=== PATIENT | male | born 1950 | race Caucasian/White ===

== ENCOUNTER 2022-03-27 18:00 | Emergency (ER) | payer MEDICARE ==
[~2022-03-27] VITALS: Ht 177.8 cm; Wt 105.2 kg
[~2022-03-27 18:00] MED LIST: ASPIR LOW81 MG PO; FLOMAX0.4 MG PO; MULTI VITAMINS1 TAB PO
[2022-03-27 19:26] LABS: BILIRUBIN Negative (Negative); BLOOD 3+ (Negative); CLARITY Clear (Clear); COLOR Yellow (Yellow); GLUCOSE Negative (Negative); KETONE Negative (Negative); LEUKO ESTERASE 3+ (Negative); NITRITE Negative (Negative); SPECIFIC GRAVITY <= 1.005 (1.001-1.030); UROBILINOGEN 0.2 E.U./dl (0.0-1.0)
[2022-03-27 19:50] LABS: BACTERIA TRACE; EPITHELIAL CELLS 0-2; RBC TNTC rbc/hpf (0-2); WBC 21-30 wbc/hpf (0-5)
[2022-03-27] MEDS ORDERED: SEPTDS PO (20:29)
== END 2022-03-27 20:27 | disposition home or self-care (01) ==
LOC: ED 18:00
PROVIDERS: Physician Assistant
DX: N39.0 Urinary tract infection, site not specified (principal); R33.9 Retention of urine, unspecified; Z79.899 Other long term (current) drug therapy; Z79.82 Long term (current) use of aspirin; Z98.890 Other specified postprocedural states

== ENCOUNTER 2023-07-17 13:56 | Inpatient (IN) | payer MEDICARE ==
[~2023-07-17] VITALS: Ht 177.8 cm; Wt 103.6 kg
[~2023-07-17 13:56] MED LIST changes: +SEPTDS PO
[2023-07-17 14:14] VITALS: BP 116/75
[2023-07-17] MEDS ORDERED: SODIUM CHLORIDE 0.9% 1,000 ML IV SCH ×3 (14:35→21:00)
[2023-07-17 15:20] LABS: BASO % 0.2 % (0.0-1.0); EOS % 0.1 % (1.0-4.0); LYMPH # 0.9 10*3/uL (1.3-4.4); LYMPH % 5.5 % (27.0-41.0); MEAN CELL VOLUME 89.3 fl (80.0-94.0); MEAN CORPUSCULAR HGB CONC 32.4 g/dl (33.0-37.0); MEAN PLATELET VOLUME 9.2 fl (9.6-12.3); MONO # 1.1 10*3/uL (0.1-1.0); MONO % 6.6 % (3.0-9.0); NEUT # 14.3 10*3/uL (2.3-7.9); NEUT % 87.2 % (47.0-73.0); PLATELET COUNT AUTOMATED 202 10*3/uL (130-400); RED BLOOD COUNT 5.49 10*6/uL (4.50-5.90); RED CELL DISTRI WIDTH 13.4 % (0-14.5); WHITE BLOOD COUNT 16.3 10*3/uL (4.8-10.8)
[2023-07-17 15:36] LABS: ALKALINE PHOSPHATASE 110 U/L (46-116); BUN 12 mg/dl (9-23); CHLORIDE 104 mmol/L (98-107); POTASSIUM 3.5 mmol/L (3.4-5.1); SGPT/ALT 13 U/L (5-49); TOTAL PROTEIN 6.8 gm/dL (6.0-8.0)
[2023-07-17 15:59] LABS: BILIRUBIN Negative (Negative); BLOOD 3+ (Negative); CLARITY Turbid (Clear); COLOR Dark Yellow (Yellow); GLUCOSE Negative (Negative); KETONE Trace (Negative); LEUKO ESTERASE 3+ (Negative); NITRITE Positive (Negative); PH 6.5 (4.5-8.0); SPECIFIC GRAVITY 1.025 (1.001-1.030)
[2023-07-17 16:12] LABS: BACTERIA 2+; RBC 41-50 rbc/hpf (0-2); WBC 31-40 wbc/hpf (0-5)
[2023-07-17] MEDS ORDERED: Ceftriaxone Sodium 1 GM/10 ML SYR IV ONE (16:15)
[2023-07-17 17:44] VITALS: BP 136/80
[2023-07-17] MEDS ORDERED: FINASTERIDE5 M1 PO (17:57)
[2023-07-17] MEDS ORDERED: OXYBUTYNIN10 MG PO (17:58)
[2023-07-17 19:12] VITALS: BP 125/72
[2023-07-17] MEDS ORDERED: Magnesium Hydroxide 30 ML UDC PO PRN (19:50)
[2023-07-17] MEDS ORDERED: BISACODYL 5 MG TAB PO PRN (19:50)
[2023-07-17] MEDS ORDERED: ACETAMINOPHEN 650 MG SUPP R PRN (19:50)
[2023-07-17] MEDS ORDERED: Ondansetron Hydrochloride 4 MG/2 ML VIAL IV PRN (19:50)
[2023-07-17] MEDS ORDERED: ACETAMINOPHEN 325 MG TAB PO PRN (19:50)
[2023-07-17] MEDS ORDERED: TEMAZEPAM 15 MG CAP PO PRN (19:50)
[2023-07-17] MEDS ORDERED: Acetaminophen/Hydrocodone 5 MG/325 MG TABLET PO PRN (19:50)
[2023-07-17] MEDS ORDERED: MORPHINE Sulfate 2 MG/ML SYR IV PRN (19:50)
[2023-07-17] MEDS ORDERED: BISACODYL 10 MG SUPP R PRN (19:50)
[2023-07-17 21:14] VITALS: BP 137/74
[2023-07-18] VITALS: BP 120/57
[2023-07-18 06:23] LABS: BASO % 0.3 % (0.0-1.0); EOS % 0.2 % (1.0-4.0); HEMATOCRIT 43.8 % (42.0-52.0); LYMPH # 1.3 10*3/uL (1.3-4.4); LYMPH % 8.2 % (27.0-41.0); MEAN CELL VOLUME 89.2 fl (80.0-94.0); MEAN CORPUSCULAR HGB 28.7 pg (27.0-31.0); MEAN CORPUSCULAR HGB CONC 32.2 g/dl (33.0-37.0); MEAN PLATELET VOLUME 9.4 fl (9.6-12.3); MONO # 1.3 10*3/uL (0.1-1.0); MONO % 8.2 % (3.0-9.0); NEUT # 12.7 10*3/uL (2.3-7.9); NEUT % 82.6 % (47.0-73.0); PLATELET COUNT AUTOMATED 176 10*3/uL (130-400); RED BLOOD COUNT 4.91 10*6/uL (4.50-5.90); RED CELL DISTRI WIDTH 13.8 % (0-14.5); WHITE BLOOD COUNT 15.3 10*3/uL (4.8-10.8)
[2023-07-18 06:38] LABS: BUN 10 mg/dl (9-23); CHLORIDE 107 mmol/L (98-107); CHOLESTEROL 70 mg/dL (<200); LDL CHOLESTEROL 25 mg/dL (9-159); TRIGLYCERIDES 56 mg/dl (<150)
[2023-07-18 07:41] LABS: VITAMIN D, 25-HYDROXY 36.8 ng/mL (30-100)
[2023-07-18 08:00] VITALS: BP 130/76
[2023-07-18] MEDS ORDERED: Phosphorus/Potassium 1.45 GM PACKET PO SCH (08:00)
[2023-07-18] MEDS ORDERED: FOLIC ACID 1 MG TAB PO SCH (08:45)
[2023-07-18] MEDS ORDERED: AMOXICILLIN 875 MG TAB PO SCH (08:45)
[2023-07-18] MEDS ORDERED: CYANOCOBALAMIN 500 MCG TAB PO SCH (08:45)
[2023-07-18] MEDS ORDERED: Tamsulosin Hydrochloride 0.4 MG CAP PO SCH (10:00)
[2023-07-18] MEDS ORDERED: FINASTERIDE 5 MG TAB PO SCH (10:00)
[2023-07-18] MEDS ORDERED: Enoxaparin Sodium 40 MG/0.4 ML SYR SC SCH (10:00)
[2023-07-18] MEDS ORDERED: Oxybutynin Chloride 5 MG TAB PO SCH (10:45)
[2023-07-18 12:00] VITALS: BP 118/65
[2023-07-18 16:00] VITALS: BP 142/64
[2023-07-18] MEDS ORDERED: Ceftriaxone Sodium 1 GM in SYRINGE INFUSION 10 ML IV SCH (17:00)
[2023-07-18 20:00] VITALS: BP 104/54
[2023-07-19] VITALS: BP 115/54
[2023-07-19 06:17] LABS: BASO % 0.3 % (0.0-1.0); EOS # 0.1 10*3/uL (0.0-0.4); EOS % 0.9 % (1.0-4.0); LYMPH # 1.5 10*3/uL (1.3-4.4); LYMPH % 11.8 % (27.0-41.0); MEAN CELL VOLUME 88.4 fl (80.0-94.0); MEAN CORPUSCULAR HGB 29.1 pg (27.0-31.0); MEAN CORPUSCULAR HGB CONC 32.9 g/dl (33.0-37.0); MEAN PLATELET VOLUME 9.4 fl (9.6-12.3); MONO # 1.2 10*3/uL (0.1-1.0); MONO % 9.1 % (3.0-9.0); NEUT # 9.9 10*3/uL (2.3-7.9); NEUT % 77.4 % (47.0-73.0); PLATELET COUNT AUTOMATED 168 10*3/uL (130-400); RED BLOOD COUNT 4.64 10*6/uL (4.50-5.90); RED CELL DISTRI WIDTH 13.5 % (0-14.5); WHITE BLOOD COUNT 12.8 10*3/uL (4.8-10.8)
[2023-07-19 07:12] LABS: BUN 10 mg/dl (9-23); CHLORIDE 106 mmol/L (98-107); POTASSIUM 3.6 mmol/L (3.4-5.1)
[2023-07-19 08:00] VITALS: BP 120/67
[2023-07-19 12:00] VITALS: BP 122/67
[2023-07-19] MEDS ORDERED: LEVOFLOXACIN750 M2 PO (12:24)
[2023-07-19] MEDS ORDERED: ZESTRIL2.5 MG PO (12:46)
== END 2023-07-19 13:30 | disposition home or self-care (01) | DRG 698 ==
LOC: ED 13:56 → EDHOLD 18:16 → 4E 18:16
PROVIDERS: Family Medicine; Nurse Practitioner Family; Student in an Organized Health Care Education/Training Program; ADMIT Internal Medicine; ATTEND Internal Medicine
DX: T83.511A Infection and inflammatory reaction due to indwelling urethral catheter, initial encounter (principal); A41.89 Other specified sepsis; I42.9 Cardiomyopathy, unspecified; N13.8 Other obstructive and reflux uropathy; E53.8 Deficiency of other specified B group vitamins; Z66 Do not resuscitate; K80.20 Calculus of gallbladder without cholecystitis without obstruction; D72.9 Disorder of white blood cells, unspecified; R73.9 Hyperglycemia, unspecified; R31.9 Hematuria, unspecified; N40.1 Benign prostatic hyperplasia with lower urinary tract symptoms; I49.9 Cardiac arrhythmia, unspecified; I49.3 Ventricular premature depolarization; I45.6 Pre-excitation syndrome; Y84.8 Other medical procedures as the cause of abnormal reaction of the patient, or of later complication, without mention of misadventure at the time of the procedure; Z98.52 Vasectomy status; Z87.442 Personal history of urinary calculi; Z81.8 Family history of other mental and behavioral disorders; Y92.89 Other specified places as the place of occurrence of the external cause